=== PATIENT | female | born 1955 ===

== ENCOUNTER 2017-04-03 08:58 | Emergency (ER) | payer OTHER ==
[~2017-04-03] VITALS: Ht 167.6 cm; Wt 70.0 kg
[2017-04-03 09:11] VITALS: BP 134/81; PULSE 104; RESP 20; TEMP 98.3; O2SAT 95
[2017-04-03 09:14] VITALS: O2SAT 93
[2017-04-03] MEDS ORDERED: SODIUM CHLORIDE 0.9% FLUSH 10 ML FLUSH IVF PRN (09:15)
[2017-04-03] MEDS ORDERED: RESP: LIDOCAINE HCL 4% PF 5 ML NEB NEB ONE (09:15)
--- NOTE | 2017-04-03 09:19 | PD ---
HPI Chief Complaint: shortness of breath Time Seen by Provider: 09:03 Travel History International Travel<30 days: No Contact w/Intl Traveler<30days: No Traveled to known affect area: No History of Present Illness HPI The patient is a 61-year-old female who presents to the emergency department for shortness of breath. The patient developed shortness of breath on Thursday which has progressively worsened over the course of the week. The patient was seen by her physician [facility] earlier today, Dr. Lagos, who administered Solu-Medrol 125 mg intravenously and one breathing treatment which did help her symptoms. The patient does note a dry nonproductive cough. She also complains of anterior chest wall pain secondary to coughing. She denies any fever, chills, or sweats. The patient does have a history of COPD and tobacco use, was recently prescribed an inhaler. The patient denies any nausea, vomiting, diarrhea, abdominal pain, or body aches. Symptoms are moderate, possibly exacerbated by history of COPD, and mildly alleviated with Solu-Medrol and breathing treatment prior to arrival. The patient denies any history of pulmonary embolism or DVT. The patient denies any recent hospitalizations, surgery, or prolonged travel. PFSH Past Medical History Narrative Medical GERD, coronary artery disease, COPD, anxiety/depression Past Surgical History Narrative Surgical Tubal ligation Social History Tobacco Use: Yes Allergies-Medications (Allergen,Severity, Reaction): Coded Allergies: No Known Allergies (Unverified , 04/03/17) Review of Systems Except as stated in HPI: all other systems reviewed are Neg General / Constitutional: No: Fever, Chills HENT: No: Lightheadedness Cardiovascular: Positive: Chest Pain or Discomfort (chest wall pain secondary to coughing) Respiratory: Positive: Cough, Shortness of Breath, Wheezing Gastrointestinal: No: Nausea, Vomiting, Abdominal Pain Musculoskeletal: No: Edema Physical Exam Narrative GENERAL: Awake, alert, pleasant 7-year-old female who appears her stated age and is in mild respiratory distress. SKIN: Focused skin assessment warm/dry. HEAD: Atraumatic. Normocephalic. EYES: Pupils equal and round. No scleral icterus. No injection or drainage. ENT: No nasal bleeding or discharge. Mucous membranes pink and moist. NECK: Trachea midline. No JVD. CARDIOVASCULAR: Regular rate and rhythm. No murmur appreciated. Heart rate in the 80s. RESPIRATORY: Mild tachypnea with a respiratory rate of 22. Supraclavicular retractions noted. Diminished breath sounds in the bases with prolonged expiratory phase and late wheeze. GASTROINTESTINAL: Abdomen soft, non-tender, nondistended. No rebound tenderness. MUSCULOSKELETAL: No obvious deformities. No clubbing. No cyanosis. No edema. Calves are soft bilaterally. NEUROLOGICAL: Awake and alert. No obvious cranial nerve deficits. Motor grossly within normal limits. Normal speech. PSYCHIATRIC: Appropriate mood and affect; insight and judgment normal. Data Data Last Documented VS Vital Signs Date Time Temp Pulse Resp B/P (MAP) Pulse Ox O2 Delivery O2 Flow Rate FiO2 04/03/17 09:24 95 Nasal Cannula 2.00 04/03/17 09:11 98.3 104 20 134/81 (98) Orders Orders Complete Blood Count With Diff (04/03/17 09:07) Comprehensive Metabolic Panel (04/03/17 09:07) B-Type Natriuretic Peptide (04/03/17 09:07) Magnesium (Mg) (04/03/17 09:07) Ckmb (Isoenzyme) Profile (04/03/17 09:07) Troponin I (04/03/17 09:07) Iv Access Insert/Monitor (04/03/17 09:07) Electrocardiogram (04/03/17 09:07) Ecg Monitoring (04/03/17 09:07) Oximetry (04/03/17 09:07) Oxygen Administration (04/03/17 09:07) Chest, Single Ap (04/03/17 09:07) Sodium Chloride 0.9% Flush (Ns Flush) (04/03/17 09:15) Albuterol-Ipratropium Neb (Duoneb Neb) (04/03/17 09:15) Lidocaine Pf 4% Neb (Lidocaine Pf 4% Neb (04/03/17 09:15) CKMB (04/03/17 09:20) CKMB% (04/03/17 09:20) Labs Laboratory Tests Test 04/03/17 09:20 White Blood Count 8.6 TH/MM3 Red Blood Count 4.52 MIL/MM3 Hemoglobin 14.3 GM/DL Hematocrit 42.8 % Mean Corpuscular Volume 94.6 FL Mean Corpuscular Hemoglobin 31.7 PG Mean Corpuscular Hemoglobin Concent 33.5 % Red Cell Distribution Width 14.3 % Platelet Count 202 TH/MM3 Mean Platelet Volume 7.3 FL Neutrophils (%) (Auto) 70.9 % Lymphocytes (%) (Auto) 19.9 % Monocytes (%) (Auto) 6.2 % Eosinophils (%) (Auto) 2.5 % Basophils (%) (Auto) 0.5 % Neutrophils # (Auto) 6.1 TH/MM3 Lymphocytes # (Auto) 1.7 TH/MM3 Monocytes # (Auto) 0.5 TH/MM3 Eosinophils # (Auto) 0.2 TH/MM3 Basophils # (Auto) 0.0 TH/MM3 CBC Comment DIFF FINAL Differential Comment Blood Urea Nitrogen 8 MG/DL Creatinine 0.56 MG/DL Random Glucose 122 MG/DL Total Protein 7.0 GM/DL Albumin 3.5 GM/DL Calcium Level 8.2 MG/DL Magnesium Level 1.7 MG/DL Alkaline Phosphatase 83 U/L Aspartate Amino Transf (AST/SGOT) 17 U/L Alanine Aminotransferase (ALT/SGPT) 25 U/L Total Bilirubin 0.3 MG/DL Sodium Level 138 MEQ/L Potassium Level 3.5 MEQ/L Chloride Level 104 MEQ/L Carbon Dioxide Level 25.0 MEQ/L Anion Gap 9 MEQ/L Estimat Glomerular Filtration Rate 110 ML/MIN Total Creatine Kinase 139 U/L Creatine Kinase MB 1.0 NG/ML Troponin I LESS THAN 0.02 NG/ML B-Type Natriuretic Peptide 12 PG/ML MDM Medical Decision Making Medical Screen Exam Complete: Yes Emergency Medical Condition: Yes Medical Record Reviewed: Yes Interpretation(s) EKG reveals normal sinus rhythm with a rate 84. Q wave noted in lead 3 and aVF. Chest x-ray reveals no acute cardiopulmonary findings. Laboratory Tests Test 04/03/17 09:20 White Blood Count 8.6 TH/MM3 Red Blood Count 4.52 MIL/MM3 Hemoglobin 14.3 GM/DL Hematocrit 42.8 % Mean Corpuscular Volume 94.6 FL Mean Corpuscular Hemoglobin 31.7 PG Mean Corpuscular Hemoglobin Concent 33.5 % Red Cell Distribution Width 14.3 % Platelet Count 202 TH/MM3 Mean Platelet Volume 7.3 FL Neutrophils (%) (Auto) 70.9 % Lymphocytes (%) (Auto) 19.9 % Monocytes (%) (Auto) 6.2 % Eosinophils (%) (Auto) 2.5 % Basophils (%) (Auto) 0.5 % Neutrophils # (Auto) 6.1 TH/MM3 Lymphocytes # (Auto) 1.7 TH/MM3 Monocytes # (Auto) 0.5 TH/MM3 Eosinophils # (Auto) 0.2 TH/MM3 Basophils # (Auto) 0.0 TH/MM3 CBC Comment DIFF FINAL Differential Comment Blood Urea Nitrogen 8 MG/DL Creatinine 0.56 MG/DL Random Glucose 122 MG/DL Total Protein 7.0 GM/DL Albumin 3.5 GM/DL Calcium Level 8.2 MG/DL Magnesium Level 1.7 MG/DL Alkaline Phosphatase 83 U/L Aspartate Amino Transf (AST/SGOT) 17 U/L Alanine Aminotransferase (ALT/SGPT) 25 U/L Total Bilirubin 0.3 MG/DL Sodium Level 138 MEQ/L Potassium Level 3.5 MEQ/L Chloride Level 104 MEQ/L Carbon Dioxide Level 25.0 MEQ/L Anion Gap 9 MEQ/L Estimat Glomerular Filtration Rate 110 ML/MIN Total Creatine Kinase 139 U/L Creatine Kinase MB 1.0 NG/ML Troponin I LESS THAN 0.02 NG/ML B-Type Natriuretic Peptide 12 PG/ML Differential Diagnosis Differential diagnosis includes COPD exacerbation, bronchitis, pneumonia, pulmonary embolism, pleural effusion, acute coronary syndrome, congestive heart failure, pulmonary edema. Narrative Course IV was established, labs are drawn and sent, and the patient was placed on cardiac telemetry monitoring and continuous pulse oximetry monitoring. EKG was ordered and interpreted. Chest x-ray was obtained. The patient already received Solu-Medrol and one breathing treatment at the [facility], therefore, was administered to [facility] nebs with respiratory lidocaine. Chest x-ray was unremarkable. BNP was 12. Troponin is negative. EKG is unremarkable. The patient was reassessed at 10:45 AM, her symptoms had significantly improved. This appears to be bronchitis and/or acute COPD exacerbation. The patient will be provided a copy of her lab results and x-ray results at discharge. She is advised to take the medications as directed and follow-up with Dr. Lagos at the [facility]. Return if symptoms worsen or progress. Diagnosis Primary Impression: Bronchitis Patient Instructions: General Instructions Additional Instructions: Medications as directed. Follow-up with your primary physician. Return if symptoms worsen or progress. Follow-up with her primary physician. Stop smoking. Please provide the patient a copy of her x-ray results and lab results at discharge. Med/Other Pt SpecificInfo: Prescription(s) given Scripts Albuterol 18 GM Inh (Ventolin Hfa 18 GM Inh) 90 Mcg/Act Aer 2 PUFF INH Q4H Y for SHORTNESS OF BREATH, #1 INHALER 0 Refills Prov: Richmond Downs MD 04/03/17 Promethazine-Codeine Liq (Promethazine-Codeine Liq) 6.25-10 Mg/5 Ml Syrp 5 ML PO Q6H Y for COUGH AND/OR COLD SYMPTOMS, #240 ML 0 Refills Prov: Richmond Downs MD 04/03/17 Azithromycin (Zithromax Z-M[place]) 250 Mg Dspk 250 MG PO DIRECTED for Infection, #1 DSPK 0 Refills 500 MG (2 tabs) day 1, then 1 tab days 2-5. Prov: Richmond Downs MD 04/03/17 Prednisone (Deltasone) 20 Mg Tab 40 MG PO DAILY for 4 Days, #8 TAB 0 Refills Prov: Richmond Downs MD 04/03/17 Disposition: 01 DISCHARGE HOME Condition: Stable Richmond Downs MD Apr 03, 2017 09:19
[2017-04-03] MEDS: RESP: ALBUTEROL 2.5 MG/IPRATROPIUM 0.5 MG NEB (SCH) INH (09:23)
[2017-04-03 09:24] VITALS: O2SAT 95
[2017-04-03 09:47] LABS: AUTOMATED NEUTROPHIL # 6.1 TH/MM3 (1.8-7.7); BASOPHIL % 0.5 % (0.0-2.0); EOSINOPHIL # 0.2 TH/MM3 (0-0.4); EOSINOPHIL % 2.5 % (0.0-4.0); HEMATOCRIT 42.8 % (35.0-46.0); HEMO FLAGS DIFF FINAL; LYMPH % 19.9 % (9.0-44.0); LYMPHOCYTE # 1.7 TH/MM3 (1.0-4.8); MEAN CELL VOLUME 94.6 FL (80.0-100.0); MEAN CORPUSCULAR HEMOGLOBIN 31.7 PG (27.0-34.0); MEAN CORPUSCULAR HGB CONC 33.5 % (32.0-36.0); MONO % 6.2 % (0.0-8.0); NEUT % 70.9 % (16.0-70.0); PLATELET COUNT 202 TH/MM3 (150-450); RED BLOOD COUNT 4.52 MIL/MM3 (4.00-5.30); RED CELL DISTRIBUTION WIDTH 14.3 % (11.6-17.2); WHITE BLOOD COUNT 8.6 TH/MM3 (4.0-11.0)
--- NOTE | 2017-04-03 09:48 | RADRPT ---
EXAM DATE/TIME: 04/03/2017 09:20 [facility] COMPARISON: No previous studies available for comparison. INDICATIONS : Short of breath with wheezing. MEDICAL HISTORY : Chronic obstructive pulmonary disease. SURGICAL HISTORY : Coronary artery stent. ENCOUNTER: Initial ACUITY: 1 day PAIN SCORE: 0/10 LOCATION: Bilateral chest FINDINGS: A single view of the chest demonstrates the lungs to be symmetrically aerated without evidence of mas s, infiltrate or effusion. The cardiomediastinal contours are unremarkable. Osseous structures are intact. Incidental note is made of a stent which appears to be in the origin of the left subclavian a rtery. CONCLUSION: 1. No acute cardiopulmonary findings. Brando Hussein MD on April 03, 2017 at 9:46 Board Certified Radiologist. This report was verified electronically.
[2017-04-03 09:58] LABS: ANION GAP 9 MEQ/L (5-15); AST (GOT) 17 U/L (15-37); BLOOD UREA NITROGEN 8 MG/DL (7-18); CHLORIDE 104 MEQ/L (98-107); GLOMERULAR FILTRATION RATE 110 ML/MIN (>89); MAGNESIUM 1.7 MG/DL (1.5-2.5); POTASSIUM 3.5 MEQ/L (3.5-5.1); SODIUM (NA) 138 MEQ/L (136-145)
[2017-04-03 10:04] LABS: ALKALINE PHOSPHATASE 83 U/L (45-117); ALT (GPT) 25 U/L (10-53); CREATINE KINASE 139 U/L (26-192); TOTAL BILIRUBIN ADULT 0.3 MG/DL (0.2-1.0)
[2017-04-03] MEDS ORDERED: PROM6.256 PO (10:53)
[2017-04-03] MEDS ORDERED: PRED-503 PO (10:53)
[2017-04-03] MEDS ORDERED: VENTAER INH (10:53)
[2017-04-03] MEDS ORDERED: ZITHTAB PO (10:53)
[2017-04-03 11:26] VITALS: BP 132/69; PULSE 89; RESP 16; O2SAT 96
--- NOTE | 2017-04-03 13:58 | EKG ---
Date Performed: 04/03/2017 Time Performed: 09:15:11 PTAGE: 61 years EKG: Sinus rhythm NORMAL ECG NO PREVIOUS TRACING DOCTOR: Son Cano Interpretating Date/Time 04/03/2017 13:56:55
== END 2017-04-03 11:49 | disposition home or self-care (01) ==
LOC: NEPC 08:58
DX: J40 Bronchitis, not specified as acute or chronic (principal); R07.89 Other chest pain; Z72.0 Tobacco use; Z87.09 Personal history of other diseases of the respiratory system; Z87.19 Personal history of other diseases of the digestive system; Z86.79 Personal history of other diseases of the circulatory system; Z86.59 Personal history of other mental and behavioral disorders
CPT/HCPCS: 71010; 80053; 82550; 82552; 83735; 83880; 84484; 85025; 93005; 94640; 94664; 99284